=== PATIENT | male | born 1960 | race Two or more races ===

== ENCOUNTER 2023-01-18 08:40 | Inpatient (IN) | payer OTHER ==
[~2023-01-18] VITALS: Ht 175.3 cm; Wt 93.9 kg
[2023-01-20] MEDS ORDERED: LITHOBID300 M1 PO (14:08)
[2023-01-20] MEDS ORDERED: CLONAZEPAM0.5 MG PO (14:08)
[2023-01-20] MEDS ORDERED: RESTORIL PO (14:09)
[2023-01-20] MEDS ORDERED: LUMIGAN2.5 M1 OP (14:10)
[2023-01-20] MEDS ORDERED: LUMIGAN2.5 M1 (14:10)
[2023-01-22] MEDS ORDERED: DORZOLAMIDE-TIM10 ML (07:57)
[2023-01-22] MEDS ORDERED: REFRESH OPTIVE1 EAC2 (07:57)
[2023-01-22] MEDS ORDERED: RESTORIL30 MG (07:57)
== END 2023-01-25 18:27 | disposition home or self-care (01) | DRG 707 ==
LOC: O/R 01-22 05:25 → SURG 01-22 10:15 → SURH 01-22 12:21
PROVIDERS: ADMIT Urology; ATTEND Urology
PROC: 07BC0ZZ Excision of Pelvis Lymphatic, Open Approach (ICD-10-PCS; 2023-01-22)
PROC: 0VT00ZZ Resection of Prostate, Open Approach (ICD-10-PCS; principal; 2023-01-22 11:15)
PROC: 30233N1 Transfusion of Nonautologous Red Blood Cells into Peripheral Vein, Percutaneous Approach (ICD-10-PCS; 2023-01-23)
DX: C61 Malignant neoplasm of prostate (principal); D62 Acute posthemorrhagic anemia; R59.0 Localized enlarged lymph nodes; Z20.822 Contact with and (suspected) exposure to COVID-19